=== PATIENT | female | born 1950 | race Caucasian/White ===

== ENCOUNTER 2019-05-22 17:45 | Observation (INO) | payer MEDICARE, OTHER ==
[~2019-05-22] VITALS: Ht 162.6 cm; Wt 106.6 kg
[2019-05-22] MEDS ORDERED: SODIUM CHLORIDE 0.9% 1000ML 1,000 ML IV ONE (18:17)
[2019-05-22 18:45] LABS: EOSINOPHILS % (AUTO) 1.8 % (0.0-8.0); HEMATOCRIT 38.4 % (36-48); LYMPHOCYTES % (AUTO) 25.6 % (21.0-51.0); MEAN CORPUSCULAR HGB CONC 33.5 g/dL (32.0-36.0); MEAN CORPUSCULAR VOLUME 95.7 fL (79-99); MONOCYTES % (AUTO) 7.3 % (3.0-13.0); NEUTROPHILS % (AUTO) 64.3 % (40.0-77.0); NUCLEATED RED BLOOD CELLS 0.1 % (0.0-0.19); PLATELET COUNT (AUTO) 237 K/uL (130-400); RED BLOOD CELL COUNT(AUTO) 4.01 MIL/uL (4.00-5.50); RED CELL DISTRIBUTION WIDTH 14.2 % (11.0-15.5); WHITE BLOOD COUNT (AUTO) 9.1 K/uL (4.8-10.8)
[2019-05-22 19:04] LABS: CREATININE 0.9 mg/dL (0.5-1.5); POTASSIUM 4.5 mmol/L (3.5-5.1)
[2019-05-22 19:12] LABS: ALBUMIN 3.5 g/dL (3.5-5.0); BILIRUBIN,TOTAL 0.1 mg/dL (0.2-1.0); TOTAL PROTEIN, SERUM 7.7 g/dL (6.0-8.3)
[2019-05-22] MEDS ORDERED: LACTULOSE 20 GM/30 ML UDCUP PO PRN (20:15)
[2019-05-22] MEDS ORDERED: ACETAMINOPHEN 325 MG TAB PO PRN ×2 (20:15)
[2019-05-22] MEDS ORDERED: ONDANSETRON HCL 4 MG/2 ML VIAL IV PRN (20:15)
[2019-05-22] MEDS ORDERED: ACETAMINOPHEN EXTRA STRENGTH 500 MG TABLET ONE (20:26)
[2019-05-22] MEDS ORDERED: ATORVASTATIN CALCIUM 20 MG TABLET ONE (20:56)
[2019-05-22] MEDS ORDERED: FAMOTIDINE 20MG TAB 20 MG TAB ONE (20:56)
[2019-05-22] MEDS: ATORVASTATIN CALCIUM 20 MG TABLET PO SCH (21:00)
[2019-05-22 21:43] LABS: HEMOGLOBIN A1C 5.9 % (4.0-6.0)
[2019-05-22 21:48] LABS: CHOLESTEROL 241 mg/dL (<200); HDL CHOLESTEROL 130 mg/dL (35-85); LDL DIRECT 163 mg/dL (0-99); TRIGLYCERIDES 147 mg/dL (30-200)
[2019-05-22 22:00] VITALS: BP 142/75
[2019-05-22 22:23] LABS: APPEARANCE,URINE Clear (CLEAR); BILIRUBIN,URINE Negative (NEGATIVE); COLOR,URINE Yellow (YELLOW); GLUCOSE, URINE (UA) Negative (NEGATIVE); KETONES,URINE Negative (NEGATIVE); LEUKOCYTE ESTERASE ,URINE Negative (NEGATIVE); NITRATE,URINE Negative (NEGATIVE); OCCULT BLOOD,URINE Negative (NEGATIVE); PROTEIN,URINE Negative (NEGATIVE)
[2019-05-22] MEDS ORDERED: METO-391 PO (22:23)
[2019-05-22 23:30] VITALS: BP 143/89
[2019-05-23 03:10] VITALS: BP 164/70
[2019-05-23 05:12] LABS: BASOPHILS % (AUTO) 0.9 % (0.0-5.0); EOSINOPHILS % (AUTO) 2.6 % (0.0-8.0); HEMATOCRIT 34.5 % (36-48); LYMPHOCYTES % (AUTO) 41.4 % (21.0-51.0); MEAN CORPUSCULAR HGB CONC 33.7 g/dL (32.0-36.0); MEAN CORPUSCULAR VOLUME 94.9 fL (79-99); MONOCYTES % (AUTO) 9.6 % (3.0-13.0); NEUTROPHILS % (AUTO) 45.5 % (40.0-77.0); PLATELET COUNT (AUTO) 236 K/uL (130-400); RED BLOOD CELL COUNT(AUTO) 3.63 MIL/uL (4.00-5.50); RED CELL DISTRIBUTION WIDTH 13.7 % (11.0-15.5); WHITE BLOOD COUNT (AUTO) 7.6 K/uL (4.8-10.8)
[2019-05-23 05:31] LABS: CREATININE 0.8 mg/dL (0.5-1.5); POTASSIUM 3.9 mmol/L (3.5-5.1)
--- NOTE | 2019-05-23 07:30 | NUR ---
NOTE AAOX3. DENIES SOB OR DISTRESS AND NONE VISIBLY NOTED. NO ASYMMETRICAL WEAKNESS OR OTHER NEUROLOGIC DEFECIT NOTED. DENIES ANY DIZZINESS BUT REPORTS HEADACHE. WILL MEDICATE PRN. VS WITH BP ELEVATED. WILL MEDICATE PRN. TELEMETRY WITH SINUS BRADYCARDIA OVERNIGHT IN THE LOW 40'S. SHE HAS BEEN TAKING MEDS FROM [place] AND HAS NOT SEEN A REGULAR DOCTOR THOUGH SHE HAS CHRONIC PROBLEMS. SHE IWLL HAVE CONSULT WITH DR MANZANARES TODAY.
[2019-05-23] MEDS: ENOXAPARIN SODIUM 40 MG/0.4 ML SYRINGE SQ SCH (07:59)
[2019-05-23] MEDS: HYDRALAZINE HCL 20 MG/ML VIAL IV PRN ×2 (07:59→20:03)
[2019-05-23] MEDS: ASPIRIN 325 MG TABLET PO SCH (08:00)
[2019-05-23] MEDS: FAMOTIDINE 20MG TAB 20 MG TAB PO SCH (08:00)
[2019-05-23 08:07] VITALS: BP 176/95
[2019-05-23 11:46] VITALS: BP 175/84
[2019-05-23 11:50] VITALS: BP 175/84
--- NOTE | 2019-05-23 12:45 | NUR ---
INITIAL MET W PT , FRIEND AT BEDSIDE PT LIVES ALONE, HAS DR. Jhonny BUSTILLO LISTED HER PMD BUT STES, I DON'T LIKE HER SO I DON'T GO.. STATE IT HAS BEEN 4 YEARS SINCE SHE HAS SEEN APHYSICIAN, STATES SHE HAS A FRIEND HANDY WORKER MEDS FOR HER IN [place]- WAS ON METOPROLOL. DENIES TAKING ASPIRIN, STATES HAS SOME AT HOME BUT DOES NOT TAKE. A\STATES INPD OF ADLS,NO DME NEEDED- HAS TROUBLE WITH STAIRS AND HANGS ON TO THE RAILING TO GET IN AND OUT OF THE HOUSE. DENIED DC NEEDS. HERE FOR POSSIBLE STROKE. WILL FOLLOW UP. Addendum: 05/23/19 at 1359 by JOHN RUIZ RN Amended: Links added.
--- NOTE | 2019-05-23 16:45 | NUR ---
NOTE DR ELIS HERMOSILLO SEE PATIENT A CONSULT FOR SYMPTOMATIC BRADYCARDIA AND HE SAID PATIENT CAN GO FROM HIS STANDPOINT. PATIENT IS ANXIOUS TO LEAVE BUT THERE IS NO RESULTS FROM MRI AND 2D ECHO YET. ONCE I HAVE RESULTS I WILL CALL PRIMARY Courtney.
[2019-05-23 17:17] VITALS: BP 136/92
[2019-05-23 19:56] VITALS: BP 186/92
[2019-05-23] MEDS: ATORVASTATIN CALCIUM 20 MG TABLET PO SCH (20:02)
[2019-05-23] MEDS ORDERED: KETOROLAC TROMETHAMINE 30MG/ML IV PRN (22:00)
[2019-05-23] MEDS ORDERED: PHARMACY COMMUNICATION MISC SCH (22:15)
[2019-05-23] MEDS ORDERED: KETOROLAC TROMETHAMINE 30MG/ML ONE (22:20)
[2019-05-23] MEDS ORDERED: DIPHENHYDRAMINE HCL 50 MG CAPSULE PO ONE (22:21)
[2019-05-24] VITALS: BP 111/58
[2019-05-24 04:00] VITALS: BP 142/79
[2019-05-24 07:48] VITALS: BP 176/88
[2019-05-24] MEDS ORDERED: ATOR10 PO (08:34)
[2019-05-24] MEDS ORDERED: ASPI-1197 PO (08:34)
[2019-05-24] MEDS ORDERED: LISINOPRIL 10 MG TABLET PO SCH ×2 (08:51→15:05)
[2019-05-24] MEDS: ENOXAPARIN SODIUM 40 MG/0.4 ML SYRINGE SQ SCH (09:00)
[2019-05-24] MEDS: FAMOTIDINE 20MG TAB 20 MG TAB PO SCH (09:17)
[2019-05-24] MEDS: ASPIRIN 325 MG TABLET PO SCH (09:17)
[2019-05-24 11:11] VITALS: BP 163/95
[2019-05-24] MEDS ORDERED: LISI10TA7 PO (14:04)
--- NOTE | 2019-05-24 16:20 | NUR ---
NOTE PATIENT DISCHARGE HOME AT THIS TIME. STABLE UPON LEAVING. TELEMETRY REMAINED SR THE WHOLE DAY FOR MY SHIFT.SHE WAS GIVEN SCRIPTS FOR BLOOD PRESSURE AND CHOLESTEROL AND WAS INSTRUCTED TO ESTABLISH PRIMARY DOCTOR AND FOLLOW UP WITH CARDIOLOGY AND NEUROLOGY NEEDED. SHE WAS CLEARED BY BOTH FOR DISCHARGE. REFER TO DC SUMMARY FOR DETAILS.
[2019-05-24] MEDS ORDERED: DIPHENHYDRAMINE HCL 25 MG CAPSULE PO SCH (21:00)
[2019-05-25] MEDS ORDERED: LISINOPRIL 10 MG TABLET PO SCH (09:00)
== END 2019-05-24 16:54 | disposition home or self-care (01) ==
LOC: EDH 17:45 → INTOOBSV 20:15 → EDHIP 20:15 → OBSVTOIN 20:15 → 4BH 21:12
PROVIDERS: ADMIT Internal Medicine; ATTEND Internal Medicine
DX: R55 Syncope and collapse (principal); I10 Essential (primary) hypertension; E66.9 Obesity, unspecified; I34.0 Nonrheumatic mitral (valve) insufficiency; K81.9 Cholecystitis, unspecified; Z91.19 Patient's noncompliance with other medical treatment and regimen; Z98.84 Bariatric surgery status; Z90.49 Acquired absence of other specified parts of digestive tract; Z90.710 Acquired absence of both cervix and uterus; Z79.899 Other long term (current) drug therapy; Z88.0 Allergy status to penicillin
CPT/HCPCS: 36415 ×2; 70450; 70551; 71045; 80048; 80053; 80061; 81003; 82550; 83036; 84484; 85025 ×2; 93005; 93306; 93880; 96372; 96374; 96376; 99284; G0378 ×45; J0360 ×2; J1650; J1885; J7030; Q0163

== ENCOUNTER → 2019-06-08 | Outpatient (CLI) | payer OTHER ==
[~2019-06-08] MED LIST: ASPI-1197 PO; ATOR10 PO; LISI10TA7 PO
== END | disposition home or self-care (01) ==
LOC: RAH 14:26
PROVIDERS: ATTEND Internal Medicine
DX: Z12.31 Encounter for screening mammogram for malignant neoplasm of breast (principal)
CPT/HCPCS: 77067

== ENCOUNTER → 2021-11-18 | Outpatient (CLI) | payer OTHER ==
[~2021-11-18] MED LIST changes: +LISI10TA24 PO; -LISI10TA7 PO
== END | disposition home or self-care (01) ==
LOC: RAH 10:26
PROVIDERS: ATTEND Internal Medicine
DX: Z12.31 Encounter for screening mammogram for malignant neoplasm of breast (principal)
CPT/HCPCS: 77067